=== PATIENT | female | born 1945 | race Caucasian/White ===

== ENCOUNTER 2017-01-09 14:34 | Observation (INO) | payer MEDICARE ==
[2017-01-09] MEDS ORDERED: MEDICATION INTERVENTION MC PRN (18:12)
[2017-01-09 18:20] LABS: Mean Cell Volume 84.9 fl (78-100); Mean Corpuscular Hemoglobin 27.1 pg (26-32); Platelet Count 311 K/mm3 (150-450)
[2017-01-09 18:33] LABS: ALBUMIN 3.8 g/dL (3.4-5.0); ALKALINE PHOSPHATASE 34 U/L (46-116); ANION GAP 13.8 MEQ/L (5-15); BLOOD UREA NITROGEN 15 mg/dL (9-20); CHLORIDE 107 mEq/L (98-107); Carbon Dioxide 29.1 mEq/L (21-32); Glucose 76 MG/DL (70-110); Potassium 4.3 mEq/L (3.5-5.1); SGOT/AST 25 U/L (15-37); SGPT/ALT 26 U/L (12-78); SODIUM 146 mEq/L (136-145); Total Protein 7.5 gm/dL (6.4-8.2)
[2017-01-09] MEDS: TYLENOL 325 MG PO PRN (20:40)
[2017-01-09] MEDS ORDERED: Zithromax 500 MG/ 250 ML NaCl Premix 500 MG/250 ML IVPB IV ONE (21:03)
[2017-01-09] MEDS: Pepcid 20 MG PO SCH (21:08)
[2017-01-09] MEDS: Coreg 3.125 MG PO SCH (21:08)
[2017-01-09] MEDS: Vibramycin 100 MG PO SCH (21:08)
[2017-01-09] MEDS ORDERED: ROCEPHIN 1 Gm-D5w 50 ml Bag** 1 G/50 ML IVPB IV SCH (22:00)
[2017-01-09] MEDS ORDERED: NON-FORMULARY ITEM (Famotidine [Pepcid] 40 MG) PO SCH (22:00)
[2017-01-09] MEDS ORDERED: Zithromax 500 MG/ 250 ML NaCl Premix 250 ML IV SCH (22:00)
[2017-01-09] MEDS ORDERED: NON-FORMULARY ITEM (Amantadine Hcl [Amantadine] 100 MG) PO SCH (22:00)
[2017-01-09] MEDS ORDERED: Zithromax 500 MG/ 250 ML NaCl Premix 500 MG/250 ML IVPB IV SCH (22:00)
--- NOTE | 2017-01-10 08:54 | PCM.NOTE ---
Date and Time: 01/10/1752 Subjective Assessment: doing better - Review of Systems Constitutional: No Fever, No Chills Eyes: No Symptoms Ears, Nose, & Throat: No Symptoms Respiratory: No Cough, No Short Of Breath Cardiac: No Chest Pain, No Edema, No Syncope Abdominal/Gastrointestinal: No Abdominal Pain, No Nausea, No Vomiting, No Diarrhea Genitourinary Symptoms: No Dysuria Musculoskeletal: No Back Pain, No Neck Pain Skin: No Rash Neurological: No Dizziness, No Focal Weakness, No Sensory Changes Psychological: No Symptoms Endocrine: No Symptoms Hematologic/Lymphatic: No Symptoms Immunological/Allergic: No Symptoms Objective Exam General Appearance: no apparent distress, alert Neurologic Exam: alert, oriented x 3, cooperative, normal mood/affect, nml cerebellar function, sensation nml, No motor deficits Skin Exam: normal color, warm, dry Eye Exam: PERRL, EOMI, eyes nml inspection Ears, Nose, Throat Exam: normal ENT inspection, pharynx normal, moist mucous membranes Neck Exam: normal inspection, non-tender, supple, full range of motion Respiratory Exam: normal breath sounds, lungs clear, No respiratory distress Cardiovascular Exam: regular rate/rhythm, normal heart sounds Gastrointestinal/Abdomen Exam: soft, No tenderness, No mass Extremity Exam: normal inspection, normal range of motion Back Exam: normal inspection, normal range of motion, No CVA tenderness, No vertebral tenderness Pelvic Exam: deferred Rectal Exam: deferred OBJECTIVE DATA Vital Signs: Vital Signs - 24 hr Temp Pulse Resp BP Pulse Ox 01/10/17 07:07 98 F 69 20 121/68 99 01/10/17 05:06 98.4 F 70 18 158/80 97 01/10/17 00:00 18 01/09/17 23:39 98.5 F 61 18 121/53 97 01/09/17 21:00 65 18 98 01/09/17 20:00 18 01/09/17 19:55 98.1 F 75 18 126/66 96 01/09/17 16:00 98.1 F 72 12 150/72 100 01/09/17 14:51 98.1 F 72 12 150/72 100 01/09/17 14:50 98.1 F 72 150/72 Pain Assessment - Last Documented Pain Intensity 6 Pain Scale Used 0-10 Pain Scale Intake and Output: Intake & Output 01/07/17 01/08/17 01/09/17 06/28/17 11:59 11:59 11:59 11:59 Intake Total 800 Output Total 1000 Balance -200 Weight 81.788 kg Lab Results: Lab Results-Last 24 Hours 01/09/17 01/09/17 Range/Units 17:33 17:33 WBC 7.0 (4.0-10.5) K/mm3 RBC 5.10 (4.1-5.4) M/mm3 Hgb 13.8 (12.0-16.0) gm/dl Hct 43.3 (35-47) % MCV 84.9 (78-100) fl MCH 27.1 (26-32) pg MCHC 31.9 L (32-36) g/dl RDW 13.0 (11.5-14.0) % Plt Count 311 (150-450) K/mm3 MPV 11.0 H (6-9.5) fl Sodium 146 H (136-145) mEq/L Potassium 4.3 (3.5-5.1) mEq/L Chloride 107 (98-107) mEq/L Carbon Dioxide 29.1 (21-32) mEq/L Anion Gap 13.8 (5-15) MEQ/L BUN 15 (9-20) mg/dL Creatinine 0.93 (0.55-1.30) mg/dl Estimated GFR > 60 ML/MIN Glucose 76 (70-110) MG/DL Calcium 9.4 (8.5-10.1) mg/dL Total Bilirubin 0.40 (0.2-1.0) mg/dL AST 25 (15-37) U/L ALT 26 (12-78) U/L Alkaline Phosphatase 34 L (46-116) U/L Serum Total Protein 7.5 (6.4-8.2) gm/dL Albumin 3.8 (3.4-5.0) g/dL Radiology Exams: Radiology Procedures Category Date Time Status CHEST 2 VIEWS (PA AND LAT) Stat Exams 01/09/17 20:18 Taken Assessment/Plan (1) Pneumonia Current Visit: Yes Status: Acute Qualifiers: Pneumonia type: due to unspecified organism Laterality: unspecified laterality Code(s): J18.9 - PNEUMONIA, UNSPECIFIED ORGANISM (2) Fibromyalgia Current Visit: Yes Status: Acute (3) Multiple sclerosis Current Visit: Yes Status: Chronic Code(s): G35 - MULTIPLE SCLEROSIS
--- NOTE | 2017-01-10 09:06 | XRAY ---
Indication: Pneumonia. MS. Comparison: July 20, 2015. PA/lateral chest again hyperinflated and clear. Heart is not enlarged. Vascularity normal. Bony thorax intact again with multilevel spinal flowing osteophytes. Impression: Stable nonacute chest with chronic features.
[2017-01-10] MEDS: VITAMIN D PO SCH (09:39)
[2017-01-10] MEDS: Coreg 3.125 MG PO SCH ×2 (09:39→21:50)
[2017-01-10] MEDS: Vibramycin 100 MG PO SCH ×2 (09:39→21:50)
[2017-01-10] MEDS: ECOTRIN 81 MG PO SCH (09:39)
[2017-01-10] MEDS ORDERED: BABY ASPIRIN 81 MG CHEW PO SCH (10:00)
[2017-01-10] MEDS ORDERED: Zithromax 500 MG/ 250 ML NaCl Premix 250 ML IV SCH (10:00)
[2017-01-10] MEDS ORDERED: ROCEPHIN 1 Gm-D5w 50 ml Bag** 1 G/50 ML IVPB IV SCH ×2 (10:00→22:00)
[2017-01-10] MEDS ORDERED: NON-FORMULARY ITEM (Cholecalciferol (Vitamin D3) [Vitamin D3] 1,000 UNIT) PO SCH (10:00)
[2017-01-10] MEDS: TYLENOL 325 MG PO PRN (11:58)
[2017-01-10] MEDS ORDERED: Ativan 2 MG/1 ML VIAL IV ONE ×2 (19:56→22:30)
[2017-01-10] MEDS: Pepcid 20 MG PO SCH (21:50)
[2017-01-10] MEDS ORDERED: Zithromax 500 MG/ 250 ML NaCl Premix 500 MG/250 ML IVPB IV SCH (22:00)
[2017-01-11 05:29] LABS: Mean Cell Volume 84.9 fl (78-100); Mean Corpuscular Hemoglobin 26.9 pg (26-32); Mean Platelet Volume 10.6 fl (6-9.5); Platelet Count 299 K/mm3 (150-450); Red Blood Count 4.84 M/mm3 (4.1-5.4); Red Cell Distribution Width 12.9 % (11.5-14.0); White Blood Count 6.5 K/mm3 (4.0-10.5)
[2017-01-11 06:18] LABS: ALBUMIN 3.2 g/dL (3.4-5.0); ANION GAP 12.2 MEQ/L (5-15); BILIRUBIN,TOTAL 0.5 mg/dL (0.2-1.0); Carbon Dioxide 27.7 mEq/L (21-32); Total Protein 6.8 gm/dL (6.4-8.2)
[2017-01-11 08:11] VITALS: O2SAT 96
[2017-01-11] MEDS: ECOTRIN 81 MG PO SCH (08:53)
[2017-01-11] MEDS: VITAMIN D PO SCH (08:53)
[2017-01-11] MEDS: Coreg 3.125 MG PO SCH (08:54)
[2017-01-11] MEDS: Vibramycin 100 MG PO SCH (08:54)
--- NOTE | 2017-01-11 11:14 | XRAY ---
Indication: Cough and confusion. Comparison: January 09, 2017. PA/lateral chest unchanged again hyperinflated and clear. Heart is not enlarged. No new/acute findings.
--- NOTE | 2017-01-11 11:25 | XRAY ---
Indication: Confusion. History of multiple sclerosis. Sagittal, coronal, and axial MRI brain was performed using pre-and post T1, T2, FLAIR, diffusion, and ADC sequences. 15 cc Magnevist contrast used. Comparison: August 24, 2015. Stable age appropriate global atrophy. There remains stable multiple nonenhancing T2 signal intensities in the periventricular white matter and minimal in the isac again favoring known multiple sclerosis. No acute intracranial hemorrhage, abnormal extra-axial fluid collection, or mass effect. Diffusion images negative for restricted signal. Following gadolinium there is again no enhancing intra-or extra-axial mass. Fourth ventricle is midline without hydrocephalus. 7/8 cranial nerve complex bilaterally symmetric. Normal flow void signal within the major intracerebral circulation. There is now mild mucosal thickening of both ethmoid sinuses. Impression: 1. Stable normal aging brain with stable nonenhancing multiple sclerosis. 2. Again no acute intracranial abnormalities or evidence for evolving large vessel territorial stroke. 3. New paranasal sinus disease.
[2017-01-11 12:29] VITALS: BP 122/56; PULSE 77
--- NOTE | 2017-01-11 12:49 | PCM.DS ---
Discharge Summary Date of Admission: 01/09/17 14:34 Admitting Physician: CHAVA HENDRICKS Primary Care Provider: CHAVA HENDRICKS Allergies Allergies mycophenolate mofetil [From CellCept] Allergy (Intermediate, Verified 01/31/12 14:16) prednisone Allergy (Intermediate, Verified 01/31/12 14:16) sulfamethoxazole [From Septra DS] Allergy (Intermediate, Verified 01/31/12 14:16 ) trimethoprim [From Septra DS] Allergy (Intermediate, Verified 01/31/12 14:16) clindamycin HCl [From Cleocin] Allergy (Mild, Verified 01/31/12 14:16) clindamycin palmitate HCl [From Cleocin] Allergy (Mild, Verified 01/31/12 14:16) clindamycin phosphate [From Cleocin] Allergy (Mild, Verified 01/31/12 14:16) Penicillins Allergy (Mild, Verified 01/31/12 14:16) interferon beta-1a [From Avonex] Allergy (Verified 11/04/14 15:04) midazolam [From Versed] Allergy (Verified 01/09/17 14:59) amitriptyline Adverse Reaction (Verified 11/04/14 15:04) clonazepam [From Klonopin] Adverse Reaction (Verified 11/04/14 15:04) gabapentin [From Neurontin] Adverse Reaction (Verified 11/04/14 15:04) Hospital Summary - Hospital Course Hospital Course: Chief Complaint Diagnosis pneumonia Allergies Allergy/AdvReac Type Severity Reaction Status Date / Time mycophenolate mofetil Allergy Intermediate Verified 01/31/12 14:16 [From CellCept] prednisone Allergy Intermediate Verified 01/31/12 14:16 sulfamethoxazole Allergy Intermediate Verified 01/31/12 14:16 [From Septra DS] trimethoprim [From Septra DS] Allergy Intermediate Verified 01/31/12 14:16 clindamycin HCl Allergy Mild Verified 01/31/12 14:16 [From Cleocin] clindamycin palmitate HCl Allergy Mild Verified 01/31/12 14:16 [From Cleocin] clindamycin phosphate Allergy Mild Verified 01/31/12 14:16 [From Cleocin] Penicillins Allergy Mild Verified 01/31/12 14:16 interferon beta-1a Allergy Verified 11/04/14 15:04 [From Avonex] midazolam [From Versed] Allergy Verified 01/09/17 14:59 amitriptyline AdvReac Verified 11/04/14 15:04 clonazepam [From Klonopin] AdvReac Verified 11/04/14 15:04 gabapentin [From Neurontin] AdvReac Verified 11/04/14 15:04 Vital Signs (Last 24 hours) Temp Pulse Resp BP Pulse Ox 01/11/17 12:00 98.7 F 77 20 141/70 96 01/11/17 08:00 98.4 F 65 20 141/70 96 01/10/17 23:45 17 01/10/17 23:42 17 01/10/17 20:00 98.2 F 76 18 131/62 97 01/10/17 16:46 98.3 F 78 20 124/68 97 01/10/17 13:04 98.1 F 74 20 122/64 97 Home Medications Medication Instructions Recorded Confirmed Last Taken Type Aspirin 81 gm Chew [Baby 81 mg PO DAILY 01/09/17 01/09/17 01/09/17 History Aspirin 81 mg Chew] Carvedilol 3.125 mg [Coreg 3.125 mg PO BID 01/09/17 01/09/17 01/09/17 History 3.125 MG] Famotidine [Pepcid] 40 mg PO HS 01/09/17 01/09/17 01/08/17 History Current Medications Generic Name Dose Route Start Last Admin Trade Name Freq PRN Reason Stop Dose Admin Acetaminophen 650 mg 01/09/17 20:31 01/10/17 11:58 Tylenol 325 Mg PO 02/08/17 20:30 650 mg Q4H PRN PRN Administration PAIN AND/OR FEVER Aspirin 81 mg 01/10/17 10:00 01/11/17 08:53 Ecotrin 81 Mg PO 02/09/17 09:59 81 mg DAILY MOUNIKA Administration Carvedilol 3.125 mg 01/09/17 22:00 01/11/17 08:54 Coreg 3.125 Mg PO 02/08/17 21:59 3.125 mg BID MOUNIKA Administration Cholecalciferol 1,000 unit 01/10/17 10:00 01/11/17 08:53 Vitamin D PO 02/09/17 09:59 1,000 unit DAILY MOUNIKA Administration Cyanocobalamin 1,000 mcg 01/12/17 10:00 Cyanocobalamin B-12 1000 Mcg/Ml IM 02/11/17 09:59 Q30D MOUNIKA Doxycycline Hyclate 100 mg 01/09/17 22:00 01/11/17 08:54 Vibramycin 100 Mg PO 02/08/17 21:59 100 mg BID MOUNIKA Administration Famotidine 40 mg 01/09/17 22:00 01/10/17 21:50 Pepcid 20 Mg PO 02/08/17 21:59 40 mg HS MOUNIKA Administration Azithromycin 500 mg in 250 mls @ 250 mls/hr 01/10/17 22:00 01/10/17 21:50 Zithromax 500 Mg/ 250 Ml Nacl Premix IV 02/09/17 21:59 250 mls/hr Q24H22 MOUNIKA Administration Ceftriaxone Sodium/Dextrose 1 g in 50 mls @ 100 mls/hr 01/10/17 22:00 21:50 Rocephin 1 Gm-D5w 50 Ml Bag IV 02/09/17 21:59 100 mls/hr Q24H22 MOUNIKA Administration Discontinued Medications Generic Name Dose Route Start Last Admin Trade Name Freq PRN Reason Stop Dose Admin Ceftriaxone Sodium/Dextrose 1 g in 50 mls @ 100 mls/hr 01/10/17 10:00 Rocephin 1 Gm-D5w 50 Ml Bag IV 02/09/17 09:59 Q24H10 MOUNIKA Azithromycin 250 mls @ 125 mls/hr 01/10/17 10:00 Zithromax 500 Mg/ 250 Ml Nacl Premix IV 02/09/17 09:59 DAILY MOUNIKA Ceftriaxone Sodium/Dextrose 1 g in 50 mls @ 100 mls/hr 01/09/17 22:00 21:08 Rocephin 1 Gm-D5w 50 Ml Bag IV 02/08/17 21:59 100 mls/hr Q24H10 MOUNIKA Administration Azithromycin 500 mg in 250 mls @ 250 mls/hr 01/09/17 22:00 01/09/17 21:41 Zithromax 500 Mg/ 250 Ml Nacl Premix IV 02/08/17 21:59 250 mls/hr Q24H10 MOUNIKA Administration Azithromycin Confirm 01/09/17 21:03 Zithromax 500 Mg/ 250 Ml Nacl Premix Administered 01/09/17 21:04 Dose 500 mg in 250 mls @ ud IV .STK-MED ONE Lorazepam 1 mg 01/10/17 19:56 01/10/17 20:40 Ativan 2 Mg/1 Ml Vial IV 01/10/17 19:57 1 mg 1XONLY ONE Administration Lorazepam 1 mg 01/10/17 22:30 01/11/17 01:17 Ativan 2 Mg/1 Ml Vial IV 01/10/17 22:31 Not Given 1XONLY ONE Intake & Output (Last 24 hours) 01/09/17 01/10/17 01/11/17 01/12/17 11:59 11:59 11:59 11:59 Intake Total 1160 1820 Output Total 1002 Balance 158 1820 Weight 81.788 kg Microbiology Results (Last 24 hours) 01/09/17 20:40 Blood - Pending 01/09/17 20:40 Blood Blood Culture - Preliminary NO GROWTH TO DATE 01/09/17 17:33 Blood - Pending 01/09/17 17:33 Blood Blood Culture - Preliminary NO GROWTH TO DATE Laboratory Results (Last 24 hours) 01/11/17 01/11/17 05:05 05:05 WBC 6.5 RBC 4.84 Hgb 13.0 Hct 41.1 MCV 84.9 MCH 26.9 MCHC 31.6 L RDW 12.9 Plt Count 299 MPV 10.6 H Sodium 144 Potassium 4.0 Chloride 108 H Carbon Dioxide 27.7 Anion Gap 12.2 BUN 17 Creatinine 1.11 Estimated GFR 52 Glucose 103 Calcium 9.0 Total Bilirubin 0.50 AST 12 L ALT 18 Alkaline Phosphatase 23 L Serum Total Protein 6.8 Albumin 3.2 L Orders (Last 24 hours) Category Date Time Status CHEST 2 VIEWS (PA AND LAT) Routine Exams 01/11/17 08:00 Completed MRI BRAIN W & W/O CONTRAST [MRI] Routine Exams 01/11/17 08:00 Completed CBC AM.LAB Lab 01/11/17 05:05 Completed CMP AM.LAB Lab 01/11/17 05:05 Completed Azithromycin 500 mg/250 ml [Zithromax 500 MG/ 250 ML Med 01/10/17 22:00 Active NaCl Premix] 500 mg in 250 ml IV Q24H22 Ceftriaxone 1 GM/50 ML PREMIX* [ROCEPHIN 1 Gm-D5w 50 ml Med 01/10/17 22:00 Active Bag] 1 g in 50 ml IV Q24H22 Cyanocobalamin 1000 Mcg/ml [Cyanocobalamin B-12 1000 Med 01/12/17 10:00 Active MCG/ML] 1,000 mcg IM Q30D Lorazepam 2 mg/1 ml [Ativan 2 MG/1 ML VIAL] Med 01/10/17 19:56 Discontinued 1 mg IV 1XONLY ONE Lorazepam 2 mg/1 ml [Ativan 2 MG/1 ML VIAL] Med 01/10/17 22:30 Discontinued 1 mg IV 1XONLY ONE - Vitals & Intake/Output Vital Signs: Vital Signs Temperature 98.7 F 01/11/17 12:00 Pulse Rate 77 01/11/17 12:00 Respiratory Rate 20 01/11/17 12:00 Blood Pressure 122/56 01/11/17 12:00 O2 Sat by Pulse Oximetry 96 01/11/17 12:00 Intake & Output: Intake & Output 01/09/17 01/10/17 01/11/17 01/12/17 11:59 11:59 11:59 11:59 Intake Total 1160 1820 Output Total 1002 Balance 158 1820 Weight 81.788 kg - Lab Result Diagrams: 01/11/17 05:05 01/11/17 05:05 Lab Results-Last 24 Hrs: Lab Results-Last 24 Hours 01/11/17 01/11/17 Range/Units 05:05 05:05 WBC 6.5 (4.0-10.5) K/mm3 RBC 4.84 (4.1-5.4) M/mm3 Hgb 13.0 (12.0-16.0) gm/dl Hct 41.1 (35-47) % MCV 84.9 (78-100) fl MCH 26.9 (26-32) pg MCHC 31.6 L (32-36) g/dl RDW 12.9 (11.5-14.0) % Plt Count 299 (150-450) K/mm3 MPV 10.6 H (6-9.5) fl Sodium 144 (136-145) mEq/L Potassium 4.0 (3.5-5.1) mEq/L Chloride 108 H (98-107) mEq/L Carbon Dioxide 27.7 (21-32) mEq/L Anion Gap 12.2 (5-15) MEQ/L BUN 17 (9-20) mg/dL Creatinine 1.11 (0.55-1.30) mg/dl Estimated GFR 52 ML/MIN Glucose 103 (70-110) MG/DL Calcium 9.0 (8.5-10.1) mg/dL Total Bilirubin 0.50 (0.2-1.0) mg/dL AST 12 L (15-37) U/L ALT 18 (12-78) U/L Alkaline Phosphatase 23 L (46-116) U/L Serum Total Protein 6.8 (6.4-8.2) gm/dL Albumin 3.2 L (3.4-5.0) g/dL Micro Results-Entire Visit: Microbiology 01/09/17 20:40 Blood Culture - Preliminary Blood NO GROWTH TO DATE 01/09/17 17:33 Blood Culture - Preliminary Blood NO GROWTH TO DATE - Radiology Exams Ordered Rad Exams-Entire Visit: Radiology Procedures Category Date Time Status CHEST 2 VIEWS (PA AND LAT) Routine Exams 01/11/17 08:00 Completed CHEST 2 VIEWS (PA AND LAT) Stat Exams 01/09/17 20:18 Completed MRI BRAIN W & W/O CONTRAST [MRI] Routine Exams 01/11/17 08:00 Completed - Procedures and Test Procedures and Tests throughout Hospitalization: Therapy Orders & Screens 01/09/17 20:18 Respiratory Therapy Consult ROUTINE Comment: Reason For Exam: Diagnosis: pneumonia Discharge Exam General Appearance: no apparent distress, alert Neurologic Exam: alert, oriented x 3, cooperative, normal mood/affect, nml cerebellar function, sensation nml, No motor deficits Skin Exam: normal color, warm, dry Eye Exam: PERRL, EOMI, eyes nml inspection Ears, Nose, Throat Exam: normal ENT inspection, pharynx normal, moist mucous membranes Neck Exam: normal inspection, non-tender, supple, full range of motion Respiratory Exam: normal breath sounds, lungs clear, No respiratory distress Cardiovascular Exam: regular rate/rhythm, normal heart sounds Gastrointestinal/Abdomen Exam: soft, No tenderness, No mass Extremity Exam: normal inspection, normal range of motion Back Exam: normal inspection, normal range of motion, No CVA tenderness, No vertebral tenderness Pelvic Exam: deferred Rectal Exam: deferred Final Diagnosis/Problem List - Final Discharge Diagnosis/Problem (1) Pneumonia Current Visit: Yes Status: Resolved (2) Fibromyalgia Current Visit: Yes Status: Acute (3) Multiple sclerosis Current Visit: Yes Status: Chronic (4) Dementia associated with other underlying disease without behavioral disturbance Current Visit: Yes Status: Chronic Assessment & Plan: Impression: 1. Stable normal aging brain with stable nonenhancing multiple sclerosis. 2. Again no acute intracranial abnormalities or evidence for evolving large vessel territorial stroke. 3. New paranasal sinus disease. - Discharge Discharge Date: 01/11/17 Disposition: Home, Self-Care Condition: Stable Prescriptions: New Donepezil HCl 10 mg [Aricept 10 MG] 5 mg PO DAILY #30 tablet Memantine HCl 5 mg [Namenda 5 MG] 5 mg PO DAILY #30 tablet Continue Amantadine HCl [Amantadine] 100 mg PO BID Cholecalciferol (Vitamin D3) [Vitamin D3] 1,000 unit PO DAILY Doxycycline Hyclate 100 mg [Vibramycin 100 MG] 100 mg PO BID Cyanocobalamin 1000 Mcg/ml [Cyanocobalamin B-12 1000 MCG/ML] 1,000 mcg IJ UD Famotidine [Pepcid] 40 mg PO HS Carvedilol 3.125 mg [Coreg 3.125 MG] 3.125 mg PO BID Aspirin 81 gm Chew [Baby Aspirin 81 mg Chew] 81 mg PO DAILY Follow up with: CHAVA HENDRICKS MD [Primary Care Provider] - 01/25/17 Forms: Patient Portal Information
[2017-01-12] MEDS ORDERED: Cyanocobalamin B-12 1000 MCG/ML IM SCH (10:00)
== END 2017-01-11 13:35 | disposition home or self-care (01) ==
LOC: MED SURG 14:34
PROVIDERS: ADMIT General Practice; ATTEND General Practice
DX: J15.8 Pneumonia due to other specified bacteria (principal); M79.7 Fibromyalgia; G35 Multiple sclerosis; F02.80 Dementia in other diseases classified elsewhere, unspecified severity, without behavioral disturbance, psychotic disturbance, mood disturbance, and anxiety; E78.5 Hyperlipidemia, unspecified
CPT/HCPCS: 36415; 70553; 71020; 80053; 85027; 87040; 94760; G0378; J0456; J0696; J2060; A9270-GY

== ENCOUNTER 2019-02-03 05:27 | Emergency (ER) | payer MEDICARE ==
--- NOTE | 2019-02-03 06:08 | ERPHSYRPT ---
- History of Present Illness Source: patient Exam Limitations: no limitations Patient Subjective Stated Complaint: spouse reports pt had medication change - Amantadine increased on Sunday and started to have increased in confusion/ hallucinations on Sunday. Pt seeing bugs, people not there, "talking out of her head". medication was increased from 200mg BID to 200mg TID. Triage Nursing Assessment: Pt presents to ER with steady gait, shakey, c/o increased confusion. pt A/O speech clear but difficulty finding words at times. spouse says this has been normal for pt over the past several months but noticed it getting worse. resp easy, lungs clear, denies SOB. no facial droop, denies numbness or tingling. Timing/Duration: day(s) (3) Severity: mild Character of Deficits: other (altered mental status) Deficits: no difficulties Baseline/Normal Cognition: alert but confused Current Cognition: alert but confused Baseline Gait: uses cane Associated Symptoms: confusion Hx Tetanus, Diphtheria Vaccination/Date Given: No Hx Influenza Vaccination/Date Given: No Hx Pneumococcal Vaccination/Date Given: No Immunizations Up to Date: Yes <MU MARQUES - Last Filed: 02/03/19 07:10> <LAURIE HUSTON - Last Filed: 02/03/19 07:54> - History of Present Illness Time Seen by Provider: 02/03/19 06:02 Physician History: Pt and her state, her Amantadine dose was increased by her physician 3 days ago, and she started becoming more confused than susual. They deny any fall , injury, no severe, acute changes in her mental status, no focal weakness, numbness ( rather c/o diffuse tingling, ant crawling). no visual changes, slurred speech, no changes in her ambulation ( she usually walks with a cane), no frequent fall,s or injury, no fever, nausea vomiting, but she has frequent headaches. (MU MARQUES) Allergies/Adverse Reactions: mycophenolate mofetil [From CellCept] Allergy (Intermediate, Verified 01/31/12 14:16) prednisone Allergy (Intermediate, Verified 01/31/12 14:16) sulfamethoxazole [From Septra DS] Allergy (Intermediate, Verified 01/31/12 14:16 ) trimethoprim [From Septra DS] Allergy (Intermediate, Verified 01/31/12 14:16) clindamycin HCl [From Cleocin] Allergy (Mild, Verified 01/31/12 14:16) clindamycin palmitate HCl [From Cleocin] Allergy (Mild, Verified 01/31/12 14:16) clindamycin phosphate [From Cleocin] Allergy (Mild, Verified 01/31/12 14:16) Penicillins Allergy (Mild, Verified 01/31/12 14:16) interferon beta-1a [From Avonex] Allergy (Verified 11/04/14 15:04) midazolam [From Versed] Allergy (Verified 01/09/17 14:59) amitriptyline Adverse Reaction (Verified 11/04/14 15:04) clonazepam [From Klonopin] Adverse Reaction (Verified 11/04/14 15:04) gabapentin [From Neurontin] Adverse Reaction (Verified 11/04/14 15:04) Home Medications: Amantadine HCl [Amantadine] 200 mg PO TID 11/04/14 [History] Cholecalciferol (Vitamin D3) [Vitamin D3] 1,000 unit PO DAILY 11/04/14 [History] Doxycycline Hyclate 100 mg [Vibramycin 100 MG] 100 mg PO BID 07/20/15 [ History] Famotidine [Pepcid] 40 mg PO HS 01/09/17 [History] - Review of Systems Constitutional: No Symptoms Eyes: No Symptoms Ears, Nose, & Throat: No Symptoms Respiratory: No Symptoms Cardiac: No Symptoms Abdominal/Gastrointestinal: Nausea Musculoskeletal: No Symptoms Neurological: Dizziness, Headache, Parasthesia All Other Systems: Reviewed and Negative <MU MARQUES - Last Filed: 02/03/19 07:10> - Past Medical History Pertinent Past Medical History: Yes Neurological History: Other ENT History: No Pertinent History Cardiac History: High Cholesterol Respiratory History: No Pertinent History Endocrine Medical History: No Pertinent History Musculoskeletal History: No Pertinent History GI Medical History: No Pertinent History History: No Pertinent History Psycho-Social History: No Pertinent History Female Reproductive Disorders: No Pertinent History Other Medical History: MS, chronic BISHOP (temporal arteryitis)- per patient - Past Surgical History Past Surgical History: Yes Neuro Surgical History: No Pertinent History Cardiac: Cardiac Catheterization Respiratory: No Pertinent History Gastrointestinal: Appendectomy Genitourinary: No Pertinent History Musculoskeletal: No Pertinent History Female Surgical History: Other Other Surgical History: ovary removed, oopherectomy times 2 - Social History Smoking Status: Never smoker Exposure to second hand smoke: No Drug Use: none Patient Lives Alone: No - Female History Hx Last Menstrual Period: menopause <MU MARQUES - Filed: 02/03/19 07:10> - [place] Coma Scale Best Eye Response (Rodriguez): (4) open spontaneously Best Verbal Response (Rodriguez): (5) oriented Best Motor Response (Rodriguez): (6) obeys commands Rodriguez Total: 15 - Physical Exam Eye Exam: bilateral eye: PERRL, EOMI Ears, Nose, Throat Exam: normal ENT inspection Neck Exam: normal inspection, non-tender, supple, No carotid bruit, No JVD Respiratory: normal breath sounds, lungs clear, airway intact Cardiovascular: regular rate/rhythm, normal heart sounds, No murmur Gastrointestinal: soft, normal bowel sounds, No tenderness, No distention, No mass, No guarding, No ecchymosis, No rebound, No organomegaly Back Exam: normal inspection, No CVA tenderness Extremity Exam: normal inspection, No calf tenderness, No pedal edema Peripheral Pulses: carotid (R): 2+, carotid (L): 2+, dorsalis-pedis (R): 2+, dorsalis-pedis (L): 2+ Mental Status: alert, oriented x 3, cooperative questioned documents examiner Exam: normal speech, PERRL, No facial asymmetry, No facial droop Coordination/Gait: normal gait Motor/Sensory: no motor deficit DTR: bicep (R): 2+, bicep (L): 2+, knee (R): 2+, knee (L): 2+ Skin Exam: normal color, warm, dry, No rash, No petechiae, No cyanosis, No diaphoresis SpO2 Interpretation: normal O2 Delivery: Room Air <MU MARQUES - Filed: 02/03/19 07:10> - Nursing Vital Signs Nursing Vital Signs: Initial Vital Signs Temperature 98.0 F 02/03/19 05:28 Pulse Rate 79 02/03/19 05:28 Respiratory Rate 20 02/03/19 05:28 Blood Pressure 126/75 02/03/19 05:28 Pain Scale Pain Intensity 0 - Course Nursing assessment & vital signs reviewed: Yes EKG Interpreted by Me: RATE (66/min), Left [place] Deviation, NORMAL INTERVALS, NORMAL QRS, Non-specific ST Changes <MU MARQUES - Last Filed: 02/03/19 07:10> Ordered Tests: Active Orders 24 hr Category Date Time Status EKG-ER Only STAT Care 02/03/19 05:58 Active IV Insertion STAT Care 02/03/19 05:58 Active NPO (ED) STAT Care 02/03/19 06:51 Active CHEST 1 VIEW (PORTABLE) Stat Exams 02/03/19 05:59 Taken HEAD WITHOUT CONTRAST [CT] Stat Exams 02/03/19 05:59 Taken CBC W DIFF Stat Lab 02/03/19 06:14 Completed CK-Creatinine Phosphokinase Stat Lab 02/03/19 06:14 Completed CMP Stat Lab 02/03/19 06:14 Completed MAGNESIUM Stat Lab 02/03/19 06:14 Completed PROTIME WITH INR Stat Lab 02/03/19 06:14 Completed PTT Stat Lab 02/03/19 06:14 Completed TROPONIN Q3H Lab 02/03/19 06:14 Completed TROPONIN Q3H Lab 02/03/19 09:00 Ordered TROPONIN Q3H Lab 02/03/19 12:00 Ordered TROPONIN Q3H Lab 02/03/19 15:00 Ordered TROPONIN Q3H Lab 02/03/19 18:00 Ordered UA W/RFX UR CULTURE Stat Lab 02/03/19 05:59 Ordered Urine Triage Profile Stat Lab 02/03/19 05:59 Ordered Lab/Rad Data: Laboratory Result Diagrams 02/03/19 06:14 02/03/19 06:14 Laboratory Results 02/03/19 02/03/19 02/03/19 Range/Units 06:14 06:14 06:14 WBC (4.0-10.5) K/mm3 RBC (4.1-5.4) M/mm3 Hgb (12.0-16.0) gm/dl Hct (35-47) % MCV (78-100) fl MCH (26-32) pg MCHC (32-36) g/dl RDW (11.5-14.0) % Plt Count (150-450) K/mm3 MPV (6-9.5) fl Gran % (36.0-66.0) % Eos # (Auto) (0-0.5) Absolute Lymphs (auto) (1.0-4.6) Absolute Monos (auto) (0.0-1.3) Lymphocytes % (24.0-44.0) % Monocytes % (0.0-12.0) % Eosinophils % (0.00-5.0) % Basophils % (0.0-0.4) % Absolute Granulocytes (1.4-6.9) Basophils # (0-0.4) PT 13.0 H (9.95-12.35) SECONDS INR 1.15 (0.8-3.0) APTT 34.7 (25.3-37.0) SECONDS Sodium 142 (137-145) mmol/L Potassium 3.9 (3.5-5.1) mmol/L Chloride 110 H (98-107) mmol/L Carbon Dioxide 26 (22-30) mmol/L Anion Gap 10.0 (5-15) MEQ/L BUN 21 H (7-17) mg/dL Creatinine 1.29 H (0.52-1.04) mg/dL Estimated GFR 43.1 ML/MIN Glucose 107 H (74-106) mg/dL Calcium 9.9 (8.4-10.2) mg/dL Magnesium 2.1 (1.6-2.3) mg/dL Total Bilirubin 0.60 (0.2-1.3) mg/dL AST 15 (14-36) U/L ALT 13 (0-35) U/L Alkaline Phosphatase 38 (38-126) U/L Creatine Kinase 29 L (30-135) U/L Troponin I < 0.012 (0.000-0.034) ng/mL Serum Total Protein 7.7 (6.3-8.2) g/dL Albumin 4.1 (3.5-5.0) g/dL 02/03/19 Range/Units 06:14 WBC 6.7 (4.0-10.5) K/mm3 RBC 4.73 (4.1-5.4) M/mm3 Hgb 13.5 (12.0-16.0) gm/dl Hct 42.1 (35-47) % MCV 89.0 (78-100) fl MCH 28.5 (26-32) pg MCHC 32.1 (32-36) g/dl RDW 13.3 (11.5-14.0) % Plt Count 301 (150-450) K/mm3 MPV 10.6 H (6-9.5) fl Gran % 60.1 (36.0-66.0) % Eos # (Auto) 0.16 (0-0.5) Absolute Lymphs (auto) 1.50 (1.0-4.6) Absolute Monos (auto) 0.97 (0.0-1.3) Lymphocytes % 22.4 L (24.0-44.0) % Monocytes % 14.5 H (0.0-12.0) % Eosinophils % 2.4 (0.00-5.0) % Basophils % 0.6 (0.0-0.4) % Absolute Granulocytes 4.04 (1.4-6.9) Basophils # 0.04 (0-0.4) PT (9.95-12.35) SECONDS INR (0.8-3.0) APTT (25.3-37.0) SECONDS Sodium (137-145) mmol/L Potassium (3.5-5.1) mmol/L Chloride (98-107) mmol/L Carbon Dioxide (22-30) mmol/L Anion Gap (5-15) MEQ/L BUN (7-17) mg/dL Creatinine (0.52-1.04) mg/dL Estimated GFR ML/MIN Glucose (74-106) mg/dL Calcium (8.4-10.2) mg/dL Magnesium (1.6-2.3) mg/dL Total Bilirubin (0.2-1.3) mg/dL AST (14-36) U/L ALT (0-35) U/L Alkaline Phosphatase (38-126) U/L Creatine Kinase (30-135) U/L Troponin I (0.000-0.034) ng/mL Serum Total Protein (6.3-8.2) g/dL Albumin (3.5-5.0) g/dL - Progress Progress: unchanged Counseled pt/family regarding: lab results, diagnosis, need for follow-up <MU MARQUES - Last Filed: 02/03/19 07:10> - Progress Progress: improved (after CT and having stopped increase dose of meds), re- examined (at 07) Discussed with Dr.: Hendricks (consulted and will follow up in the office) Counseled pt/family regarding: lab results, diagnosis, need for follow-up, rad results <LAURIE HUSTON - Last Filed: 02/03/19 07:54> - Progress Progress Note: 02/03/19 07:51 introduced myself to patient and family; assumed care from Dr Frey; reviewed lab, CT and EKG; took hx and examined patient;findings consistant with documentation of Dr Bhardwaj. 02/03/19 07:[address] Hendricks and reviewed findings; will keep dose reduced to old regimen and follow up in the offince; resultsw reviewed with family and instructions given (LAURIE HUSTON) - Departure Critical Care Time: No <MU MARQUES - Last Filed: 02/03/19 07:10> - Departure Departure Disposition: Home Critical Care Time: No <LAURIE HUSTON - Last Filed: 02/03/19 07:54> - Departure Clinical Impression: Confusion caused by a drug Condition: Stable Referrals: CHAVA HENDRICKS MD [Primary Care Provider] - Instructions: Dementia (DC) Additional Instructions: continue meds as before recent increase; follow up with Dr Hendricks in office as needed; RT if problems
[2019-02-03 06:19] LABS: BASOPHIL % 0.6 % (0.0-0.4); Basophil (Absolute #) 0.04 (0-0.4); Eosinophil % 2.4 % (0.00-5.0); Eosinophil (Absolute #) 0.16 (0-0.5); Granulocyte Absolute (ANC) 4.04 (1.4-6.9); Granulocytes % 60.1 % (36.0-66.0); Hematocrit 42.1 % (35-47); Hemoglobin 13.5 gm/dl (12.0-16.0); Lymphocytes % 22.4 % (24.0-44.0); Mean Corpuscular Hemoglobin 28.5 pg (26-32); Mean Corpuscular Hgb Concent. 32.1 g/dl (32-36); Mean Platelet Volume 10.6 fl (6-9.5); Monocyte (Absolute #) 0.97 (0.0-1.3); Monocytes % 14.5 % (0.0-12.0); Platelet Count 301 K/mm3 (150-450); Red Blood Count 4.73 M/mm3 (4.1-5.4); Red Cell Distribution Width 13.3 % (11.5-14.0); White Blood Count 6.7 K/mm3 (4.0-10.5)
[2019-02-03 06:25] LABS: INR 1.15 (0.8-3.0)
[2019-02-03 06:27] LABS: PTT 34.7 SECONDS (25.3-37.0)
[2019-02-03 06:30] LABS: ALBUMIN 4.1 g/dL (3.5-5.0); BILIRUBIN,TOTAL 0.6 mg/dL (0.2-1.3); Calcium 9.9 mg/dL (8.4-10.2); Creatinine 1 1.29 mg/dL (0.52-1.04); MAGNESIUM 2.1 mg/dL (1.6-2.3); Potassium 3.9 mmol/L (3.5-5.1); Total Protein 7.7 g/dL (6.3-8.2)
[2019-02-03 06:41] VITALS: O2SAT 98
[2019-02-03 07:52] VITALS: BP 143/76; PULSE 71
--- NOTE | 2019-02-03 12:27 | XRAY ---
Exam: AP upright portable chest film from 02/03/2019. Comparison: Two-view chest series from 01/11/2017. Indication: 74-year-old female with altered mental status, difficulty finding words and phrases, multiple sclerosis. Findings: The heart size and contour are normal. A calcified, mildly tortuous aortic arch and descending thoracic aorta is seen. The remainder of the piper and mediastinal structures appears unremarkable. Multiple EKG leads overlie the chest. There is minimal elevation of the right hemidiaphragm representing no change. No infiltrates, vascular congestion, pneumothorax, or pleural fluid is seen. I believe there is a very small calcified granuloma at the medial left lung base behind the heart. No acute osseous process is seen. Impression: 1. No acute cardiopulmonary process is seen. The findings are unchanged from 01/11/2017.
--- NOTE | 2019-02-03 13:04 | XRAY ---
Exam: CT of the head without IV contrast from 02/03/2019. CTDI: 59.80 Comparison: MRI of the brain without and with IV contrast from 01/11/[address] of the head without IV contrast from 07/22/2015. Indication: 74-year-old female with altered mental status, memory loss, speech disturbance, difficulty walking, confusion/disorientation. Unable to find words, altered speech pattern, history of multiple sclerosis. Technique: Non-IV contrast axial images were obtained through the brain. Reconstructed coronal and sagittal images were created and reviewed. Findings: The ventricles are slightly enlarged representing no significant change. There is also some prominence of the of the cortical sulci and basilar cisterns. This is consistent with some cerebral volume loss/atrophy. I see no acute acute intracranial hemorrhage or abnormal extra-axial fluid collection. No focal mass effect or midline shift is seen. There is some mild bilateral periventricular and subcortical white matter changes which may reflect chronic microvascular disease and/or chronic changes of MS. No definite new dominant low-attenuation territorial infarct is seen. The calvarium of the skull appears intact. The visualized paranasal sinuses are essentially clear representing no change from the CT study of 07/22/2015. The mastoid air cells are clear without. The middle ear cavities appear unremarkable. Impression: 1. Mild chronic cerebral volume loss/atrophy and chronic microvascular changes within the periventricular and subcortical white matter consistent with chronic microvascular disease and/or chronic changes of MS. This is unchanged from 07/22/2015. 2. No acute intracranial bleed, new low-attenuation territorial infarct, or other acute intracranial process is seen.
== END 2019-02-03 08:11 | disposition home or self-care (01) ==
LOC: ED 05:27
DX: T42.8X5A Adverse effect of antiparkinsonism drugs and other central muscle-tone depressants, initial encounter (principal); R41.0 Disorientation, unspecified; R41.82 Altered mental status, unspecified; Z79.899 Other long term (current) drug therapy
CPT/HCPCS: 36000; 36415; 70450; 71045; 80053; 82550; 83735; 84484; 85025; 85610; 85730; 93005; 99284

== ENCOUNTER 2019-02-19 12:00 | Inpatient (IN) | payer MEDICARE ==
[2019-02-19 15:00] LABS: Hematocrit 43.3 % (35-47); Mean Cell Volume 87.8 fl (78-100); Mean Corpuscular Hemoglobin 28.4 pg (26-32); Mean Corpuscular Hgb Concent. 32.3 g/dl (32-36); Platelet Count 394 K/mm3 (150-450); Red Blood Count 4.93 M/mm3 (4.1-5.4); Red Cell Distribution Width 13.3 % (11.5-14.0); White Blood Count 10.3 K/mm3 (4.0-10.5)
[2019-02-19 15:06] LABS: ALBUMIN 4.6 g/dL (3.5-5.0); ANION GAP 15.2 MEQ/L (5-15); BILIRUBIN,TOTAL 0.7 mg/dL (0.2-1.3); Calcium 10.4 mg/dL (8.4-10.2); Creatinine 1 1.3 mg/dL (0.52-1.04); Total Protein 8.6 g/dL (6.3-8.2)
[2019-02-19] MEDS: Sodium Chloride 0.9% 1000 ML 1,000 ML IV SCH (16:00)
--- NOTE | 2019-02-19 16:04 | XRAY ---
Indication: Confusion and weakness. Multiple contiguous axial images obtained through the head without contrast. Comparison: February 03, 2019. Stable age-appropriate global atrophy and mild periventricular degenerative microvascular ischemia bilaterally. No acute intracranial hemorrhage, abnormal extra-axial fluid collection, or mass effect. Fourth ventricle is midline without hydrocephalus. Bony calvarium intact. Visualized paranasal sinuses and mastoid air cells are clear. Impression: Stable nonacute senile brain. Follow-up CT or MRI may yield further information if there remains further clinical concern. CTDI 60.26
--- NOTE | 2019-02-19 16:05 | XRAY ---
Indication: Confusion and weakness. Comparison: February 03, 2019. PA/lateral chest remains hyperinflated and clear again with a few incidental calcified granulomas. Heart and mediastinal structures within normal limits. Bony thorax intact again with mild degenerative changes. Impression: Stable nonacute hyperinflated chest with chronic features.
[2019-02-19] MEDS ORDERED: MEDICATION INTERVENTION MC SCH (17:30)
[2019-02-19] MEDS: Pepcid 20 MG PO SCH (20:27)
[2019-02-19] MEDS: Vibramycin 100 MG PO SCH (20:27)
[2019-02-19] MEDS ORDERED: AMANTADINE HCL PO SCH (22:00)
[2019-02-19] MEDS ORDERED: NON-FORMULARY ITEM (Famotidine [Pepcid] 40 MG) PO SCH (22:00)
[2019-02-20] MEDS ORDERED: Ativan 2 MG/1 ML VIAL IV ONE (06:06)
[2019-02-20] MEDS: Vibramycin 100 MG PO SCH ×2 (09:25→20:52)
[2019-02-20 10:39] LABS: Appearance CLEAR (CLEAR); Bilirubin NEGATIVE (NEGATIVE); Blood NEGATIVE Ery/ul (0-5); Glucose NEGATIVE (NEGATIVE); Ketones SMALL (NEGATIVE); Leukocyte Esterase MODERATE (NEGATIVE); Mucus SLIGHT /HPF (NEGATIVE); Nitrite NEGATIVE (NEGATIVE); Protein,Urine Dip NEGATIVE (Negative); RBC 0-2 /HPF (0-2); Specific Gravity 1.011 (1.005-1.025); Urobilinogen NEGATIVE mg/dL (0-1)
[2019-02-20] MEDS: NON-FORMULARY ITEM PO SCH ×2 (11:44→20:49)
--- NOTE | 2019-02-20 12:05 | PCM.NOTE ---
Date and Time: 02/20/19 1202 Subjective Assessment: Patient is having difficulty in walking, off and on confusion, - Review of Systems Constitutional: Fatigue, Lethargy, Malaise, No Fever, No Chills Eyes: No Symptoms Ears, Nose, & Throat: No Symptoms Respiratory: No Cough, No Short Of Breath Cardiac: No Chest Pain, No Edema, No Syncope Abdominal/Gastrointestinal: No Abdominal Pain, No Nausea, No Vomiting, No Diarrhea Genitourinary Symptoms: No Dysuria Musculoskeletal: No Back Pain, No Neck Pain Skin: No Rash Neurological: Dizziness, Focal Weakness, Gait Changes, Irritability, Lethargy, No Sensory Changes Psychological: No Symptoms Endocrine: No Symptoms Hematologic/Lymphatic: No Symptoms Immunological/Allergic: No Symptoms Objective Exam General Appearance: mild distress Neurologic Exam: alert Skin Exam: normal color Eye Exam: PERRL, EOMI Ears, Nose, Throat Exam: normal ENT inspection Neck Exam: normal inspection Respiratory Exam: normal breath sounds Cardiovascular Exam: regular rate/rhythm Gastrointestinal/Abdomen Exam: soft Extremity Exam: normal inspection Back Exam: normal inspection OBJECTIVE DATA Vital Signs: Vital Signs - 24 hr Temp Pulse Resp BP BP Pulse Ox 02/20/19 08:00 86 20 140/69 160/67 95 02/20/19 04:10 98.2 F 83 20 163/83 97 02/20/19 00:04 98.5 F 80 20 140/75 97 02/19/19 20:10 97.8 F 70 18 160/77 99 02/19/19 16:00 98.1 F 63 18 139/71 100 02/19/19 12:57 97.7 F 80 20 160/67 99 02/19/19 12:56 97.7 F 80 20 160/67 99 Oxygen-Last 24 hours O2 Percentage 2 Liters = 28% Pain Assessment - Last Documented Pain Intensity 5 Pain Scale Used 0-10 Pain Scale Intake and Output: Intake & Output 02/18/19 02/19/19 02/20/19 02/21/19 11:59 11:59 11:59 11:59 Intake Total 1748 Balance 1748 Weight 66.5 kg Lab Results: Lab Results-Last 24 Hours 02/19/19 02/19/19 02/20/19 Range/Units 13:00 13:00 10:00 WBC 10.3 (4.0-10.5) K/mm3 RBC 4.93 (4.1-5.4) M/mm3 Hgb 14.0 (12.0-16.0) gm/dl Hct 43.3 (35-47) % MCV 87.8 (78-100) fl MCH 28.4 (26-32) pg MCHC 32.3 (32-36) g/dl RDW 13.3 (11.5-14.0) % Plt Count 394 (150-450) K/mm3 MPV 11.0 H (6-9.5) fl Sodium 146 H (137-145) mmol/L Potassium 4.0 (3.5-5.1) mmol/L Chloride 109 H (98-107) mmol/L Carbon Dioxide 26 (22-30) mmol/L Anion Gap 15.2 H (5-15) MEQ/L BUN 22 H (7-17) mg/dL Creatinine 1.30 H (0.52-1.04) mg/dL Estimated GFR 42.7 ML/MIN Glucose 113 H (74-106) mg/dL Calcium 10.4 H (8.4-10.2) mg/dL Total Bilirubin 0.70 (0.2-1.3) mg/dL AST 20 (14-36) U/L ALT 15 (0-35) U/L Alkaline Phosphatase 36 L (38-126) U/L Serum Total Protein 8.6 H (6.3-8.2) g/dL Albumin 4.6 (3.5-5.0) g/dL Urine Color YELLOW (YELLOW) Urine Appearance CLEAR (CLEAR) Urine pH 6.0 (5-6) Ur Specific [place] 1.011 (1.005-1.025) Urine Protein NEGATIVE (Negative) Urine Ketones SMALL (NEGATIVE) Urine Blood NEGATIVE (0-5) Jorge Alberto/ul Urine Nitrite NEGATIVE (NEGATIVE) Urine Bilirubin NEGATIVE (NEGATIVE) Urine Urobilinogen NEGATIVE (0-1) mg/dL Ur Leukocyte Esterase MODERATE (NEGATIVE) Urine WBC (Auto) 11-15 (0-5) /HPF Urine RBC (Auto) 0-2 (0-2) /HPF U Epithel Cells (Auto) NONE (FEW) /HPF Urine Mucus (Auto) SLIGHT (NEGATIVE) /HPF Urine Culture Reflexed YES (NO) Urine Glucose NEGATIVE (NEGATIVE) mg/dL Radiology Exams: Radiology Procedures Category Date Time Status CHEST 2 VIEWS (PA AND LAT) Routine Exams 02/19/19 15:00 Completed HEAD WITHOUT CONTRAST [CT] Routine Exams 02/19/19 15:18 Completed Assessment/Plan (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 Current Visit: Yes Status: Acute Assessment & Plan: Last Vital Signs Temp 98.2 F 02/20/19 04:10 Pulse 86 02/20/19 08:00 Resp 20 02/20/19 08:00 BP 140/69 02/20/19 08:00 Pulse Ox 95 02/20/19 08:00 Allergies mycophenolate mofetil [From CellCept] Allergy (Intermediate, Verified 01/31/12 14:16) prednisone Allergy (Intermediate, Verified 01/31/12 14:16) sulfamethoxazole [From Septra DS] Allergy (Intermediate, Verified 01/31/12 14:16 ) trimethoprim [From Septra DS] Allergy (Intermediate, Verified 01/31/12 14:16) clindamycin HCl [From Cleocin] Allergy (Mild, Verified 01/31/12 14:16) clindamycin palmitate HCl [From Cleocin] Allergy (Mild, Verified 01/31/12 14:16) clindamycin phosphate [From Cleocin] Allergy (Mild, Verified 01/31/12 14:16) Penicillins Allergy (Mild, Verified 01/31/12 14:16) interferon beta-1a [From Avonex] Allergy (Verified 11/04/14 15:04) midazolam [From Versed] Allergy (Verified 01/09/17 14:59) amitriptyline Adverse Reaction (Verified 11/04/14 15:04) clonazepam [From Klonopin] Adverse Reaction (Verified 11/04/14 15:04) gabapentin [From Neurontin] Adverse Reaction (Verified 11/04/14 15:04) Active Medications Acetaminophen (Tylenol Extra Strength 500 Mg) 500 mg PO Q4H PRN PRN PRN Reason: Pain, BISHOP Stop: 03/21/19 15:39 Doxycycline Hyclate (Vibramycin 100 Mg) 100 mg PO BID MOUNIKA Stop: 03/21/19 21:59 Last Admin: 02/20/19 09:25 Dose: 100 mg Famotidine (Pepcid 20 Mg) 40 mg PO HS MOUNIKA Stop: 03/21/19 21:59 Last Admin: 02/19/19 20:27 Dose: 40 mg Sodium Chloride (Sodium Chloride 0.9% 1000 Ml) 1,000 mls @ 50 mls/hr IV .Q20H MOUNIKA Stop: 03/21/19 15:59 Last Admin: 02/19/19 16:00 Dose: 50 mls/hr Non-Formulary ( (Amantadine)) 0 each PO BID MOUNIKA Stop: 03/22/19 11:29 Last Admin: 02/20/19 11:44 Dose: 100 each Intake & Output 02/20/19 02/21/19 11:59 11:59 Intake Total 1748 Balance 1748 Weight 66.5 kg Orders 02/19/19 12:26 Place in Observation ROUTINE 02/19/19 14:26 Prescriptionist/Discharge Plan ROUTINE ST Screen per Nursing Assess once 02/19/19 14:47 Telemetry Q6H 02/19/19 14:51 OT Eval and Treat (MD Order) ROUTINE PT Eval & Treat (MD Order) ROUTINE Speech Therapy Eval & Treat [ST Eval & Treat (MD Order)] .as ordered 02/19/19 14:52 Nursing [Miscellaneous Nursing Order] ROUTINE 02/19/19 15:40 Acetaminophen 500 mg [Tylenol Extra Strength 500 mg] 500 mg PO Q4H PRN PRN 02/19/19 16:00 NaCl 0.9% 1000 ml [Sodium Chloride 0.9% 1000 ML] 1,000 ml IV 50 mls/hr 02/19/19 22:00 Doxycycline Hyclate 100 mg [Vibramycin 100 MG] 100 mg PO BID Famotidine 20 mg [Pepcid 20 MG] 40 mg PO HS 02/19/19 Dinner Regular Diet 02/20/19 10:00 CULTURE,URINE Urgent 02/20/19 11:22 Neuro Checks Q4H 02/20/19 11:30 Non-Formulary Drug [Non-Formulary Item] 0 each PO BID Lab Tests 02/19/19 02/19/19 02/20/19 13:00 13:00 10:00 WBC 10.3 RBC 4.93 Hgb 14.0 Hct 43.3 MCV 87.8 MCH 28.4 MCHC 32.3 RDW 13.3 Plt Count 394 MPV 11.0 H Sodium 146 H Potassium 4.0 Chloride 109 H Carbon Dioxide 26 Anion Gap 15.2 H BUN 22 H Creatinine 1.30 H Estimated GFR 42.7 Glucose 113 H Calcium 10.4 H Total Bilirubin 0.70 AST 20 ALT 15 Alkaline Phosphatase 36 L Serum Total Protein 8.6 H Albumin 4.6 Urine Color YELLOW Urine Appearance CLEAR Urine pH 6.0 Ur Specific [place] 1.011 Urine Protein NEGATIVE Urine Ketones SMALL Urine Blood NEGATIVE Urine Nitrite NEGATIVE Urine Bilirubin NEGATIVE Urine Urobilinogen NEGATIVE Ur Leukocyte Esterase MODERATE Urine WBC (Auto) 11-15 Urine RBC (Auto) 0-2 U Epithel Cells (Auto) NONE Urine Mucus (Auto) SLIGHT Urine Culture Reflexed YES Urine Glucose NEGATIVE Code(s): G11.9 - HEREDITARY ATAXIA, UNSPECIFIED (2) 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
[2019-02-20] MEDS: Ativan 1 MG PO SCH ×2 (14:11→20:47)
[2019-02-20] MEDS: Sodium Chloride 0.9% 1000 ML 1,000 ML IV SCH (15:48)
[2019-02-20] MEDS: TYLENOL EXTRA STRENGTH 500 MG PO PRN (18:25)
[2019-02-20] MEDS: Pepcid 20 MG PO SCH (20:51)
[2019-02-21] MEDS ORDERED: Ativan 2 MG/1 ML VIAL IV ONE (01:24)
[2019-02-21] MEDS: Ativan 1 MG PO SCH ×3 (09:37→22:15)
[2019-02-21] MEDS: Vibramycin 100 MG PO SCH ×2 (09:37→22:14)
--- NOTE | 2019-02-21 11:56 | PCM.NOTE ---
Date and Time: 02/21/19 1155 Subjective Assessment: doing ok - Review of Systems Constitutional: No Fever, No Chills Eyes: No Symptoms Ears, Nose, & Throat: No Symptoms Respiratory: No Cough, No Short Of Breath Cardiac: No Chest Pain, No Edema, No Syncope Abdominal/Gastrointestinal: No Abdominal Pain, No Nausea, No Vomiting, No Diarrhea Genitourinary Symptoms: No Dysuria Musculoskeletal: No Back Pain, No Neck Pain Skin: No Rash Neurological: No Dizziness, No Focal Weakness, No Sensory Changes Psychological: No Symptoms Endocrine: No Symptoms Hematologic/Lymphatic: No Symptoms Immunological/Allergic: No Symptoms Objective Exam General Appearance: mild distress, alert, anxiety Neurologic Exam: alert, oriented x 3, cooperative, normal mood/affect, nml cerebellar function, sensation nml, No motor deficits Skin Exam: normal color, warm, dry Eye Exam: PERRL, EOMI, eyes nml inspection Ears, Nose, Throat Exam: normal ENT inspection, pharynx normal, moist mucous membranes Neck Exam: normal inspection, non-tender, supple, full range of motion Respiratory Exam: normal breath sounds, lungs clear, No respiratory distress Cardiovascular Exam: regular rate/rhythm, normal heart sounds Gastrointestinal/Abdomen Exam: soft, No tenderness, No mass Extremity Exam: normal inspection, normal range of motion Back Exam: normal inspection, normal range of motion, No CVA tenderness, No vertebral tenderness Pelvic Exam: deferred Rectal Exam: deferred OBJECTIVE DATA Vital Signs: Vital Signs - 24 hr Temp Pulse Resp BP Pulse Ox 02/21/19 07:48 98.2 F 89 18 137/69 97 02/21/19 04:15 15 02/21/19 00:00 98.5 F 87 22 145/65 98 02/20/19 20:00 98.3 F 94 H 20 130/71 99 02/20/19 16:00 98.4 F 89 18 134/87 99 02/20/19 12:00 98.1 F 69 20 127/72 100 Pain Assessment - Last Documented Pain Intensity 4 Pain Scale Used 0-10 Pain Scale,FLACC Intake and Output: Intake & Output 02/18/19 02/19/19 02/20/19 02/21/19 11:59 11:59 11:59 11:59 Intake Total 1748 920 Balance 1748 920 Weight 66.5 kg 66.5 kg Radiology Exams: Radiology Procedures Category Date Time Status CHEST 2 VIEWS (PA AND LAT) Routine Exams 02/19/19 15:00 Completed HEAD WITHOUT CONTRAST [CT] Routine Exams 02/19/19 15:18 Completed Multi-Disciplinary Progress Notes: Multi-Disciplinary Progress Notes 02/20/19 15:21 Physical Therapy Note by Carisa Coleman HOLDING INTERVENTION UNTIL PATIENT MORE ABLE TO TOLERATE SKILLED ACTIVITY - MODERATE AGITATION AND CONFUSION TODAY. 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
[2019-02-21] MEDS: Pepcid 20 MG PO SCH (22:15)
[2019-02-22] MEDS: Vibramycin 100 MG PO SCH ×2 (08:55→22:36)
[2019-02-22] MEDS: Ativan 1 MG PO SCH ×4 (09:53→22:36)
--- NOTE | 2019-02-22 12:24 | PCM.NOTE ---
Date and Time: 02/22/19 1220 Subjective Assessment: Pt is still confused today but can converse. She was restless last night and went to sleep about 2 a.m. For Lacie in ST, she is oriented to self but does know her birthdate or where she lives. She cries during the exam after stating "I used to know you medical people." - Review of Systems Constitutional: No Fever Abdominal/Gastrointestinal: No Vomiting Objective Exam General Appearance: no apparent distress, alert Neurologic Exam: cooperative, disoriented Skin Exam: normal color, warm, dry, No rash Ears, Nose, Throat Exam: moist mucous membranes Neck Exam: normal inspection Respiratory Exam: normal breath sounds, lungs clear, No crackles/rales, No rhonchi, No wheezing Cardiovascular Exam: regular rate/rhythm, normal heart sounds, No murmur Extremity Exam: normal inspection, No pedal edema, No swelling OBJECTIVE DATA Vital Signs: Vital Signs - 24 hr Temp Pulse Resp BP Pulse Ox 02/22/19 07:33 98.3 F 87 17 132/74 95 02/22/19 03:49 18 02/22/19 00:00 97.9 F 89 18 142/72 99 02/21/19 20:00 98.4 F 93 H 18 133/65 98 02/21/19 16:00 97.8 F 79 18 128/67 93 L Pain Assessment - Last Documented Pain Intensity 0 [facility] Intake and Output: Intake & Output 02/20/19 02/21/19 02/22/19 02/23/19 11:59 11:59 11:59 11:59 Intake Total 4775 220 1123 Output Total 1300 Balance 1748 920 140 Weight 66.5 kg 66.5 kg Multi-Disciplinary Progress Notes: Multi-Disciplinary Progress Notes 02/21/19 13:16 Speech Therapy Note by Lacie Strickland SPEECH THERAPY NOTE: Patient asleep at this time. Patient on hold for ST due to current level of awake/alert. Attempted ST evaluation 02/20/19 but patient required medication for agitation and slept immediately following. Will attempt again 02/22/19. MS Marty, CCC/[employer] Initialized on 02/21/19 13:16 - END OF NOTE 02/21/19 12:30 (created 02/21/19 15:41) Case Management Note by Libra Posadas DISCHARGE PLAN REVIEWED WITH PT'S AND SON. SON REPORTS THAT HE IS IN VISITING FROM [place], AND THAT HE IS GOING HOME FOR A COUPLE OF DAYS. REPORTS THAT HIS PLAN IS TO RETURN PRIOR TO HIS MOTHER BEING DISCHARGED. DISCUSSED THAT THEY STILL PLAN FOR PT TO TRANSITION TO [facility] FOR SKILLED REHAB STAY ON DISCHARGE. HOPEFUL THAT PT WILL BE ABLE TO RETURN HOME AFTER REHAB STAY. DENIES ADDL NEEDS AT PRESENT. WILL CONTINUE TO FOLLOW FOR ALL DC NEEDS. Initialized on 02/21/19 15:41 - END OF NOTE Assessment/Plan (1) Dementia associated with other underlying disease without behavioral disturbance Current Visit: Yes Status: Chronic Assessment & Plan: Could have been exacerbated by recent increase in amantadine, per pt's . The med has been totally discontinued since yesterday. However apparently family has seen a decline for some time. 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
[2019-02-22] MEDS: Pepcid 20 MG PO SCH (22:36)
[2019-02-22 23:59] VITALS: O2SAT 97
[2019-02-23] MEDS: TYLENOL EXTRA STRENGTH 500 MG PO PRN (06:11)
[2019-02-23] MEDS: Ativan 1 MG PO SCH ×2 (09:44→11:51)
[2019-02-23] MEDS: Vibramycin 100 MG PO SCH (09:45)
[2019-02-23 10:54] LABS: Hematocrit 45.9 % (35-47); Hemoglobin 14.4 gm/dl (12.0-16.0); Mean Cell Volume 89.5 fl (78-100); Mean Corpuscular Hemoglobin 28.1 pg (26-32); Mean Corpuscular Hgb Concent. 31.4 g/dl (32-36); Mean Platelet Volume 10.6 fl (6-9.5); Platelet Count 324 K/mm3 (150-450); Red Blood Count 5.13 M/mm3 (4.1-5.4); Red Cell Distribution Width 13.5 % (11.5-14.0); White Blood Count 7.8 K/mm3 (4.0-10.5)
[2019-02-23 10:58] LABS: ANION GAP 11.8 MEQ/L (5-15); Calcium 9.8 mg/dL (8.4-10.2); Creatinine 1 1.02 mg/dL (0.52-1.04); Potassium 3.9 mmol/L (3.5-5.1)
[2019-02-23 11:45] VITALS: BP 114/58; PULSE 85
--- NOTE | 2019-02-23 12:33 | PCM.DS ---
Discharge Summary Date of Admission: 02/20/19 12:00 Admitting Physician: CHAVA HENDRICKS Primary Care Provider: CHAVA HENDRICKS Allergies Allergies mycophenolate mofetil [From CellCept] Allergy (Intermediate, Verified 01/31/12 14:16) prednisone Allergy (Intermediate, Verified 01/31/12 14:16) sulfamethoxazole [From Septra DS] Allergy (Intermediate, Verified 01/31/12 14:16 ) trimethoprim [From Septra DS] Allergy (Intermediate, Verified 01/31/12 14:16) clindamycin HCl [From Cleocin] Allergy (Mild, Verified 01/31/12 14:16) clindamycin palmitate HCl [From Cleocin] Allergy (Mild, Verified 01/31/12 14:16) clindamycin phosphate [From Cleocin] Allergy (Mild, Verified 01/31/12 14:16) Penicillins Allergy (Mild, Verified 01/31/12 14:16) interferon beta-1a [From Avonex] Allergy (Verified 11/04/14 15:04) midazolam [From Versed] Allergy (Verified 01/09/17 14:59) amitriptyline Adverse Reaction (Verified 11/04/14 15:04) clonazepam [From Klonopin] Adverse Reaction (Verified 11/04/14 15:04) gabapentin [From Neurontin] Adverse Reaction (Verified 11/04/14 15:04) Hospital Summary - Hospital Course Hospital Course: Pt is a 74 yo female pt of Dr. Hendricks's with hx MS and dementia who was admitted directly by him for worsening mental status. He had apparently increased her dose of amantadine the week prior. He did go back to the previous dose, then discontinued it altogether 2d ago. On admission her CT head was stable and non acute. CXR non acute. CBC nl. UA on 02/20 with 11-15 WBC, 0-2 RBC, neg nitrites. Her eGFR initially was 42.7 and today is 56.5. She has been quite disoriented for the first part of her stay here, requiring constant supervision. She has not been sleeping well (2 nights ago went to bed at 2 a.m.). Yesterday she was pleasant and conversant (although still disoriented). She walked the rainey with assistance yesterday. Last night the nurses skipped the 5 p.m. dose of ativan, instead giving her the midnight and 6 a.m. dose and she slept well. Today she has no complaints, is pleasant, conversant and cooperative although still not oriented to place or time. She will be discharged to [facility] today. Family would like for Dr. Hendricks to continue seeing the pt if possible. - Vitals & Intake/Output Vital Signs: Vital Signs Temperature 97.9 F 02/23/19 11:43 Pulse Rate 85 02/23/19 11:43 Respiratory Rate 18 02/23/19 11:43 Blood Pressure 114/58 02/23/19 11:43 O2 Sat by Pulse Oximetry 97 02/23/19 11:43 Oxygen-Last Documented O2 Percentage 2 Liters = 28% Intake & Output: Intake & Output 02/21/19 02/22/19 02/23/19 02/24/19 11:59 11:59 11:59 11:59 Intake Total 920 1440 1420 Output Total 1300 2275 Balance 920 140 -855 Weight 66.5 kg - Lab Result Diagrams: 02/23/19 10:37 02/23/19 10:37 Lab Results-Last 24 Hrs: Lab Results-Last 24 Hours 02/23/19 02/23/19 Range/Units 10:37 10:37 WBC 7.8 (4.0-10.5) K/mm3 RBC 5.13 (4.1-5.4) M/mm3 Hgb 14.4 (12.0-16.0) gm/dl Hct 45.9 (35-47) % MCV 89.5 (78-100) fl MCH 28.1 (26-32) pg MCHC 31.4 L (32-36) g/dl RDW 13.5 (11.5-14.0) % Plt Count 324 (150-450) K/mm3 MPV 10.6 H (6-9.5) fl Sodium 144 (137-145) mmol/L Potassium 3.9 (3.5-5.1) mmol/L Chloride 105 (98-107) mmol/L Carbon Dioxide 31 H (22-30) mmol/L Anion Gap 11.8 (5-15) MEQ/L BUN 21 H (7-17) mg/dL Creatinine 1.02 (0.52-1.04) mg/dL Estimated GFR 56.5 ML/MIN Glucose 163 H (74-106) mg/dL Calcium 9.8 (8.4-10.2) mg/dL Micro Results-Entire Visit: Microbiology 02/20/19 10:00 Urine Culture - Final Clean Catch Midstream <10K NORMAL SKIN ARPAN PROBABLE SKIN CONTAMINANT - Procedures and Test Procedures and Tests throughout Hospitalization: Therapy Orders & Screens 02/19/19 14:26 PT Screen per Nursing Assess ONCE Comment: Protocol Order Physician Instructions: Greater than 3 points order PT Admission Screenin Reason For Exam: Triggered on Admission Diagnosis: confusion, temperature Open Wound/Cellutlitis/Pressure Ulcers: No Acute Fx/ORIF/Change in wt bearing status: No Severe MUSCULOSKELETAL pain: No ADL Dysfunction: Yes Acute CVA w/Hemiparesis/Hemiplegia: No Decreased Functional Mobility/Strength: Yes Sprain/Strain: No Acute Post-op Mobility Dysfunction: No Total Points: 4 ST Screen per Nursing Assess once Comment: Protocol Order Physician Instructions: Greater than [address] Admission Screening Reason For Exam: Triggered on Admission Diagnosis: confusion, temperature CVA/Dyshpagia/Aphasia: Yes Cognitive Deficits: Yes Dehydration/Nutrition Deficit: No Reflux: No Oral-Motor Difficulties: Yes Pneumonia: No Long-Term Resident: No Total Points: 11 02/19/19 14:51 OT Eval and Treat (MD Order) Comment: Consulting Provider: Physician Instructions: Reason For Exam: CONFUSION Diagnosis: confusion, temperature PT Eval & Treat ( Order) ROUTINE Reason for Eval:: CONFUSION Diagnosis: confusion, temperature Speech Therapy Eval & Treat [ST Eval & Treat (MD Order)] .as ordered Comment: Physician Instructions: Reason For Exam: Evaluate: Yes Treat: Yes Reason for Eval: CONFUSION Diagnosis: confusion, temperature Discharge Exam General Appearance: no apparent distress, alert Neurologic Exam: cooperative, normal mood/affect, disoriented Ears, Nose, Throat Exam: moist mucous membranes Neck Exam: normal inspection Respiratory Exam: normal breath sounds, lungs clear, No crackles/rales, No rhonchi, No wheezing Cardiovascular Exam: regular rate/rhythm, normal heart sounds, No murmur Gastrointestinal/Abdomen Exam: soft, normal bowel sounds, No tenderness Back Exam: normal inspection, No rash Extremity Exam: normal inspection, No pedal edema, No swelling Skin Exam: normal color, warm, dry, No rash Final Diagnosis/Problem List - Final Discharge Diagnosis/Problem (1) Dementia associated with other underlying disease without behavioral disturbance Current Visit: Yes Status: Chronic Assessment & Plan: with recent exacerbation, possibly due to medication changes. I have decreased the ativan dosage from 1mg to 0.5mg, but increased the frequency from TID to q6h prn. Will discharge her to [place] today. 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 Current Visit: Yes Status: Chronic Code(s): G11.9 - HEREDITARY ATAXIA, UNSPECIFIED (3) Multiple sclerosis Current Visit: Yes Status: Chronic Code(s): G35 - MULTIPLE SCLEROSIS - Discharge Disposition: Skilled Care @ [facility] Condition: Stable Prescriptions: New Lorazepam 0.5 mg [Ativan 0.5 MG] 0.5 mg PO Q6H PRN #12 tablet PRN Reason: Agitation Acetaminophen 500 mg [Tylenol Extra Strength 500 mg] 500 mg PO Q4H PRN PRN tablet PRN Reason: Pain, BISHOP Continue Doxycycline Hyclate 100 mg [Vibramycin 100 MG] 100 mg PO BID Famotidine [Pepcid] 40 mg PO HS Discontinued Amantadine HCl [Amantadine] 300 mg PO BID Follow up with: CHAVA HENDRICKS MD [Primary Care Provider] - 1 Week
== END 2019-02-23 14:28 | DRG 884 ==
LOC: MED SURG 12:00 → OBSVTOIN 02-20 12:00
PROVIDERS: ADMIT General Practice; ATTEND General Practice
DX: F03.90 Unspecified dementia, unspecified severity, without behavioral disturbance, psychotic disturbance, mood disturbance, and anxiety (principal); G11.9 Hereditary ataxia, unspecified; G35 Multiple sclerosis; R42 Dizziness and giddiness; Z79.899 Other long term (current) drug therapy
CPT/HCPCS: 36415; 70450; 71046; 80048; 80053; 81001; 85027; 87086; 92523; 93268; 97162; 97166; 97530; G0378; J2060; A9270-GY